=== PATIENT | female | born 1970 | race African-American/Black ===

== ENCOUNTER 2023-09-20 07:17 | Outpatient (CLI) | payer OTHER, SELFPAY ==
[2023-09-20 08:14] LABS: Hemoglobin 10.4 g/dL (12.0-15.0); Mean Corpuscular HGB Conc 30.6 g/dl (32-36); Mean Corpuscular Hemoglobin 27.7 pg (26-34); Mean Corpuscular Volume 90.7 fl (80-100); Mean Platelet Volume 9.7 fl (7.4-10.4); Platelet Count Result 350 k/mm3 (150-375); Red Blood Count 3.75 M/mm3 (4.2-5.4); Red Cell Distribution Width 13.2 % (11.5-14.5); White Blood Count 8.5 K/mm3 (4.5-10.0)
[2023-09-20 08:23] LABS: Albumin Level 3.7 g/dL (3.5-5.1); Anion Gap 8 mmol/L (8-16); Blood Urea Nitrogen 28 mg/dL (7-17); Calcium 8.8 mg/dL (8.4-10.2); Carbon Dioxide 23 mmol/L (22-30); Chloride 108 mmol/L (98-107); Estimated Glomerular Filt Rate 23; Glucose 83 mg/dL (65-110); Phosphorus 3.6 mg/dL (2.5-4.5); Sodium 139 mmol/L (137-145)
[2023-09-20 08:35] LABS: Parathyroid Intact 276.9 pg/mL (7.5-53.5)
[2023-09-20 08:39] LABS: Iron 74 ug/dL (37-170)
[2023-09-20 08:48] LABS: Percent Iron Saturation 28 % (20-50); Vitamin D 25 Hydroxy 15.7 ng/mL
[2023-09-20 09:08] LABS: Total Protein Urine Random 270 mg/dL; Ur Ttl Prot Creatinine Ratio 3.03 mg/mg (0-0.20)
== END 2023-09-20 07:18 | disposition home or self-care (01) ==
LOC: ANHLAB 07:20
PROVIDERS: PCP Family Medicine; Visit Provider Internal Medicine Nephrology
DX: N18.4 Chronic kidney disease, stage 4 (severe) (principal); E55.9 Vitamin D deficiency, unspecified; N25.81 Secondary hyperparathyroidism of renal origin
CPT/HCPCS: 36415; 80069; 82306; 82570; 82728; 83540; 83550; 83970; 84156; 85027

== ENCOUNTER 2023-11-08 20:58 | Emergency (ER) | payer OTHER, SELFPAY ==
[2023-11-08 20:59] VITALS: BP 151/82; PULSE 78; RESP 18; TEMP 36.3; O2SAT 100
--- NOTE | 2023-11-08 21:27 | PC.NURSE ---
after having VS taken pt decided BP was stable enough to go home. Education and f/u provided. Pt made aware to come back if needed and f/u with PCP.
== END 2023-11-08 22:43 | disposition left against medical advice (07) ==
LOC: ANHED 21:47
PROVIDERS: PCP Family Medicine
DX: I10 Essential (primary) hypertension (principal)
CPT/HCPCS: 99199

== ENCOUNTER 2023-12-06 18:06 | Emergency (ER) | payer OTHER, SELFPAY ==
--- NOTE | ~2023-12-06 | US_ITS ---
EXAMINATION: US venous doppler UE DATE: 12/06/2023 19:23 INDICATION: pain, tightness . TECHNIQUE: Grayscale ultrasound images without and with compression and Doppler ultrasound images of the left upper extremity veins were obtained. COMPARISON: None. FINDINGS: The visualized portions of the left internal jugular vein, subclavian vein, axillary vein, brachial v eins, basilic vein, and cephalic vein are patent. The left radial and ulnar veins were not evaluated. IMPRESSION: No left upper extremity deep venous thrombosis. Reviewed, dictated and finalized at location K.
--- NOTE | ~2023-12-06 | XR_ITS ---
EXAMINATION: XR chest 2V Exam Date/Time: 12/06/2023 18:45 CDT HISTORY: SOB Comparison: 11/22/2018. RESULT: Lines, tubes, and devices: None. Lungs and pleura: Clear. Cardiomediastinal silhouette: Stable. Other: No acute osseous or upper abdominal finding. IMPRESSION: No acute cardiopulmonary process. Reviewed, dictated and finalized at location K.
[2023-12-06 18:16] VITALS: BP 150/103; PULSE 92; RESP 18; TEMP 36.8; O2SAT 100
--- NOTE | 2023-12-06 18:18 | ECG_ITS ---
Measurements Intervals [place] Rate: 88 P: 48 FL: 168 QRS: -23 QRSD: 87 T: 41 QT: 346 QTc: 419 Interpretive Statements SINUS RHYTHM POSSIBLE LEFT ATRIAL ENLARGEMENT LOW QRS VOLTAGE IN PRECORDIAL LEADS CANNOT RULE OUT SEPTAL INFARCT, AGE INDETERMINATE ABNORMAL ECG COMPARED TO ECG 11/22/2018 01:47:13 NO SIGNIFICANT CHANGES Electronically Signed On 12-06-2023 18:59:52 CDT by Jose Chavez D.O.
--- NOTE | 2023-12-06 18:19 | ED.EXTPRO ---
HPI - Extremity Problem General Chief complaint: Extremity Problem,Nontraumatic <Yaz Turcios PA-C - Last Filed: 12/08/23 12:56> Stated complaint: tightness left arm <Yaz Turcios PA-C - Last Filed: 12/08/23 12:56> Time Seen by Provider: 12/06/23 18:19 <Yaz Turcios PA-C - Last Filed: 12/08/23 12:56> Focused HPI: This is a 53 year old female that presents to the ER for tightness in her left arm. Ongoing over the last 2 days. She was concerned she was having a heart attack which prompted her to be seen. Reports she has been out of her blood pressure medication recently. Report some shortness of breath. Denies chest pain. GENERAL: Well-appearing, well-nourished, and in no acute distress. HEAD: Normocephalic, atraumatic. CHEST: Clear to auscultation. ?No respiratory distress. HEART: Regular rate and rhythm.? NEURO: ?Alert and oriented x3. Patient screened in triage and initial orders placed.? ?Additional care and disposition to be based upon?diagnostic testing and treatment. <Yaz Turcios PA-C - Last Filed: 12/08/23 12:56> History of Present Illness HPI Narrative: 53-year-old female present to the ED for evaluation of tightness to her left arm. <Mariano Manley MD - Last Filed: 12/13/23 08:16> Related Data Home medications: Home Medications Medication Instructions Recorded Confirmed benzonatate 100 mg capsule 100 mg PO TID 08/26/23 09/23/23 escitalopram oxalate 10 mg tablet 10 mg PO DAILY 08/26/23 09/23/23 (Lexapro) famotidine 20 mg tablet 20 mg PO DAILY 08/26/23 09/23/23 lorazepam 0.5 mg tablet 0.5 mg PO DAILY PRN 08/26/23 09/23/23 <STEPHEN Kenney Last Filed: 12/08/23 12:56> Allergies/Adverse reactions: Allergies Allergy/AdvReac Type Severity Reaction Status Date / Time ibuprofen Allergy Other Verified 12/06/23 19:27 <STEPHEN Kenney Filed: 12/08/23 12:56> Review of Systems Review of Systems: All systems reviewed & are unremarkable except as noted in HPI and below <Yaz Turcios PA-C - Last Filed: 12/08/23 12:56> PMFSH Past Medical History Medical History: Medical History (Updated 12/09/23 @ 00:00 by Background Dajay) Anxiety CKD (chronic kidney disease) Glomerulosclerosis Hypertension Proteinuria <Yaz Turcios PA-C - Last Filed: 12/08/23 12:56> Family History Family History: Family History (Updated 12/14/16 @ 23:56 by DOCTOR UNKNOWN) Father Hypertension Mother Hypertension Family history of elevated blood lipids Cerebrovascular accident Family history of coronary artery disease, Onset Age: 57 Family history of malignant neoplasm of breast in first degree relative Patient's mother is Family history of diabetes mellitus in first degree relative Grandparent Family history of coronary artery disease, Onset Age: 76 Diabetes mellitus Other Family history of pancreatic cancer <Yaz Turcios PA-C - Last Filed: 12/08/23 12:56> Social History Social History: Social History (Updated 09/23/23 @ 15:06 by Riri Walker MA) Smoking status: Never smoker Alcohol intake: current Substance use: never Do You Feel Safe in your Home?: Yes Lack of Transportation: No Lack of Food: Never True Current Housing: I Have Housing Concerned About Future Housing: No Difficulty Paying Gas/Electric Bills: No Difficulty Paying for Meds: No Currently Unemployed: No Education: Bachelor's Degree Difficulty w/ Childcare or Family Care: No Occupation/Education: occupation Gender identity (if verbalized by the patient): Female <Yaz Turcios PA-C - Last Filed: 12/08/23 12:56> Exam Narrative: GENERAL: Well-appearing, well-nourished, and in no acute distress. HEAD: Normocephalic, atraumatic. EYES: EOMI. CHEST: Clear to auscultation. No respiratory distress. No wheezes rales or rhonchi HEART: Regular rate and rhythm. No murmur heard. Normal peripheral
[2023-12-06 18:36] LABS: Basophils Absolute Auto 0.1 K/mm3 (0.0-0.1); Eosinophils Absolute Auto 0.4 K/mm3 (0-0.3); Eosinophils Percent Auto 4.9 % (0-4.4); Hematocrit 34.1 % (37.0-47.0); Hemoglobin 10.6 g/dL (12.0-15.0); Immature Granulocyte Absolute 0.03 K/mm3 (0.00-0.031); Immature Granulocyte Percent A 0.3 % (0-0.5); Mean Corpuscular HGB Conc 31.1 g/dl (32-36); Mean Corpuscular Hemoglobin 28.2 pg (26-34); Mean Corpuscular Volume 90.7 fl (80-100); Mean Platelet Volume 9.9 fl (7.4-10.4); Monocytes Absolute Auto 0.8 K/mm3 (0.1-0.6); Monocytes Percent Auto 8.7 % (2.6-8.5); Neutrophils Percent Auto 56.1 % (45.5-73.1); Platelet Count Result 312 k/mm3 (150-375); Red Blood Count 3.76 M/mm3 (4.2-5.4)
[2023-12-06 18:43] LABS: Partial Thromboplastin Time 29.3 Seconds (22.3-36.8); Prothrombin Time 13.1 Seconds (11.1-14.7)
[2023-12-06 18:45] LABS: Alanine Aminotransferase 16 U/L (6-35); Alkaline Phosphatase 80 U/L (38-126); Anion Gap 4 mmol/L (4-12); Aspartate Amino Transferase 22 U/L (14-36); Bilirubin,Total 0.4 mg/dL (0.2-1.3); Blood Urea Nitrogen 25 mg/dL (7-17); Calcium 9.3 mg/dL (8.4-10.2); Carbon Dioxide 26 mmol/L (22-30); Chloride 109 mmol/L (98-107); Estimated CRCL calculation 26 ml/min; Estimated Glomerular Filt Rate 19; Glucose 76 mg/dL (65-110); Potassium 3.7 mmol/L (3.4-5.0); Sodium 139 mmol/L (137-145)
[2023-12-06 18:57] LABS: Troponin I < 0.012 ng/mL (0.000-0.034)
[2023-12-06 19:27] VITALS: BP 146/89; PULSE 81; RESP 17; O2SAT 100
== END 2023-12-06 20:10 | disposition home or self-care (01) ==
PROVIDERS: Physician Assistant; Emergency Provider Emergency Medicine; PCP Family Medicine
DX: N17.9 Acute kidney failure, unspecified (principal); I12.9 Hypertensive chronic kidney disease with stage 1 through stage 4 chronic kidney disease, or unspecified chronic kidney disease; N18.9 Chronic kidney disease, unspecified; M79.602 Pain in left arm; T46.5X6A Underdosing of other antihypertensive drugs, initial encounter; F41.9 Anxiety disorder, unspecified
CPT/HCPCS: 36415; 71046; 80053; 84484; 85025; 85610; 85730; 93005; 93971; 99284

== ENCOUNTER 2024-01-03 12:21 | Observation (INO) | payer OTHER, SELFPAY ==
--- NOTE | ~2024-01-03 | US_ITS ---
EXAMINATION: US carotid duplex BI DATE: 01/04/2024 12:15 INDICATION: Neurologic symptoms TECHNIQUE: Grayscale, color Doppler, and pulsed Doppler images of the cervical carotid arteries were obtained. The degree of vessel stenosis is placed in one of the following categories: normal, <50%, 5 0-69%, >=70% but less than near-occlusion, near-occlusion, or total occlusion. Note that percent sten osis relative to normal distal artery lumen diameter is indirectly measured from velocity measurement s as described by Kei, et al. Radiology 2003; 229:340-346. COMPARISON: None. FINDINGS: RIGHT: The right common carotid artery (CCA) peak systolic velocity (PSV) is 82.9 cm/s. The right internal c arotid artery (ICA) PSV is 93.9 cm/s. The right ICA end-diastolic velocity (EDV) is 33.0 cm/s. The ri ght ICA/CCA PSV ratio is 1.1. Grayscale and color Doppler images yield an estimate of less than 50% d iameter reduction from plaque in the ICA. The external carotid artery (ECA) PSV is 66.4 cm/s. There i s antegrade flow in the right vertebral artery. LEFT: The left CCA PSV is 78.7 cm/s. The left ICA PSV is 92.9 cm/s. The left ICA EDV is 33.4 cm/s. The left ICA/CCA PSV ratio is 1.2. Grayscale and color Doppler images yield an estimate of less than 50% diam eter reduction from plaque in the ICA. The ECA PSV is 51.5 cm/s. There is antegrade flow in the left vertebral artery. IMPRESSION: 1. Less than 50% stenosis in the right internal carotid artery. 2. Less than 50% stenosis in the left internal carotid artery. Reviewed, dictated and finalized at Location A. Reviewed, dictated and finalized at location A.
--- NOTE | ~2024-01-03 | MR_ITS ---
EXAMINATION: MR brain/brain stem wo/w con DATE: 01/04/2024 14:53 INDICATION: confusion TECHNIQUE: Magnetic resonance imaging (MRI) of the brain and brainstem was performed with 20 mL Multi Stefan intravenous contrast. Sequences included sagittal and axial T1-weighted SE, axial diffusion-krystle ghted FS EPI ASSET, axial T2*-weighted GRE, axial T2-weighted FLAIR Propeller, and axial T2-weighted Propeller. Postcontrast axial and coronal T1-weighted SE was obtained. Apparent diffusion coefficient (ADC) maps were created. COMPARISON: CT brain 01/03/2024 FINDINGS: No abnormal restricted diffusion to suggest acute ischemic infarct. No MRI evidence of hemorrhage or extra-axial collection. No suspicious foci of susceptibility to suggest prior intraparenchymal hemorr margarita. Normal white matter signal. Partially empty sella. No evidence of advanced or lobar predominant parenchymal volume loss. The basilar cisterns are patent. Flow voids are preserved. Paranasal sinuse s are within normal limits. Globes and orbital contents are within normal limits. IMPRESSION: No acute intracranial process. Reviewed, dictated and finalized at location K.
--- NOTE | ~2024-01-03 | CT_ITS ---
EXAMINATION: CT brain wo con DATE: 01/03/2024 14:03 INDICATION: Neurological deficit TECHNIQUE: Computed tomography (CT) of the head was performed without intravenous contrast. The dose- length product was 529.67 mGy-cm. Automated exposure control and iterative reconstruction technique w ere employed. COMPARISON: None FINDINGS: Normal brain parenchymal volume. No acute intracranial hemorrhage, infarction, mass or mass effect. No ventriculomegaly or midline shift. Basilar cisterns are patent.No depressed skull fractur es. Paranasal sinuses and mastoids are pneumatized. IMPRESSION: 1. No acute intracranial abnormality. Reviewed, dictated and finalized at location B.
[2024-01-03 12:27] VITALS: BP 194/111; PULSE 69; RESP 12; TEMP 36.6; O2SAT 100
[2024-01-03 12:33] VITALS: PULSE 85
--- NOTE | 2024-01-03 12:52 | ED.AMS ---
HPI - Altered Mental Status General Chief Complaint: Altered Mental Status Stated Complaint: CONFUSION, LAST KNOWN WELL YESTERDAY Time Seen by Provider: 01/03/24 12:50 History of Present Illness HPI narrative: Patient is a 53 year old female with history of HTN, CKD here with acute confusion. Patient's son last saw her in person last night behaving her normal self. This morning around 9 am she had a full oriented conversation with patient's sister who is at bedside and was able to drive over to the sister's home. She was coming to her sister's home for a virtual job interview. Around 11:30 AM she called said sister and asked strange questions stating things like I think I am at your house? She arrived at home, checked her blood pressure which was in the 150's systolic and they waited for additional family members to bring her into the ER. Patient has repetitive questioning during exam, asking repeatedly if she is moving to [place] (which is where the job she is interviewing for is located). She is oriented to most past events prior to today and the names of her family members, coworkers but has poor recollection of current scenarios and the present date. She denies any pain, headache, trauma. She denies drug or alcohol use. She denies any numbness, weakness or difficulty talking. Family notes she has been walking without difficulty. No chest pain, fever, chills. Family notes she is under a significant amount of stress lately including caring for her 2 children who have some disabilities, a pending upcoming move, coordinating a new job. Related Data Home Medications Medication Instructions Recorded Confirmed escitalopram oxalate 10 mg tablet 10 mg PO DAILY 08/26/23 01/03/24 (Lexapro) famotidine 20 mg tablet 20 mg PO DAILY 08/26/23 01/03/24 losartan 50 mg tablet 50 mg PO DAILY 01/03/24 01/03/24 Allergies Allergy/AdvReac Type Severity Reaction Status Date / Time ibuprofen Allergy Other Verified 12/06/23 19:27 Review of Systems Review of Systems: All systems reviewed & are unremarkable except as noted in HPI and below PMFSH Past Medical History Medical History Anxiety CKD (chronic kidney disease) Glomerulosclerosis Hypertension Proteinuria Family History Family History (Updated 01/03/24 @ 16:49 by Judy Guadalupe RN) Father Hypertension Mother Family history of elevated blood lipids Family history of diabetes mellitus in first degree relative Patient's mother is Family history of malignant neoplasm of breast in first degree relative Family history of coronary artery disease, Onset Age: 57 Hypertension Cerebrovascular accident Grandparent Diabetes mellitus Family history of coronary artery disease, Onset Age: 76 Cerebrovascular accident Sibling Cerebrovascular accident Other Family history of pancreatic cancer Social History Social History Smoking status: Never smoker Alcohol intake: never Substance use: never Do You Feel Safe in your Home?: Yes Lack of Transportation: No Lack of Food: Never True Current Housing: I Have Housing Concerned About Future Housing: No Difficulty Paying Gas/Electric Bills: No Difficulty Paying for Meds: No Currently Unemployed: No Education: Bachelor's Degree Difficulty w/ Childcare or Family Care: No Occupation/Education: occupation Gender identity (if verbalized by the patient): Female Spiritual care concerns: No Exam Narrative: GENERAL: Well-appearing, well-nourished, and in no acute distress. HEAD: Normocephalic, atraumatic. EYES: PERRLA and EOMI. ENT: Nares clear. Mucous membranes moist. NECK: Supple. CHEST: Clear to auscultation. No respiratory distress. HEART: Regular rate and rhythm. Normal peripheral pulses. ABDOMEN: Soft, nontender, nondistended. EXTREMITIES: Normal range of motion. No edema. SKIN
--- NOTE | 2024-01-03 12:54 | ECG_ITS ---
SEE SCANNED COPY FOR CONFIRMED REPORT MTDD
[2024-01-03 13:09] LABS: Basophils Absolute Auto 0.1 K/mm3 (0.0-0.1); Basophils Percent Auto 0.9 % (0.2-1.2); Eosinophils Absolute Auto 0.4 K/mm3 (0-0.3); Eosinophils Percent Auto 4.1 % (0-4.4); Hemoglobin 11.2 g/dL (12.0-15.0); Immature Granulocyte Absolute 0.02 K/mm3 (0.00-0.031); Immature Granulocyte Percent A 0.2 % (0-0.5); Lymphocytes Absolute Auto 2.27 K/mm3 (0.9-3.2); Lymphocytes Percent Auto 24.9 % (18.3-44.2); Mean Corpuscular HGB Conc 31.1 g/dl (32-36); Mean Corpuscular Hemoglobin 28.1 pg (26-34); Mean Corpuscular Volume 90.5 fl (80-100); Mean Platelet Volume 9.7 fl (7.4-10.4); Monocytes Absolute Auto 0.6 K/mm3 (0.1-0.6); Monocytes Percent Auto 6.4 % (2.6-8.5); Neutrophils Absolute Auto 5.8 K/mm3 (1.3-6.7); Neutrophils Percent Auto 63.5 % (45.5-73.1); Platelet Count Result 338 k/mm3 (150-375); Red Blood Count 3.98 M/mm3 (4.2-5.4); Red Cell Distribution Width 13.5 % (11.5-14.5); White Blood Count 9.1 K/mm3 (4.5-10.0)
[2024-01-03 13:14] LABS: Appearance Urine Clear (Clear); Bacteria Urine None Seen /hpf; Bilirubin Urine Negative (Negative); Blood Urine 2+ (Negative); Color Urine Yellow (Yellow); Glucose Urine UA Negative (Negative); Ketones Urine Negative (Negative); Leukocyte Esterase Ur Negative LEU/UL (Negative); Nitrate Urine Negative (Negative); Non Pathogenic Casts 0-2; Protein Urine 3+ mg/dL (Negative); RBC Urine 51-100 /hpf (0-2); Squamous Epithelial Cell Urine None Seen /hpf (Few); Urobilinogen Urine 0.2 mg/dL (<2.0); WBC Urine 0-5 /hpf (0-3); pH Urine 6.5 (5.0-9.0)
[2024-01-03 13:19] LABS: Alanine Aminotransferase 16 U/L (6-35); Albumin Level 4.5 g/dL (3.5-5.1); Alkaline Phosphatase 76 U/L (38-126); Anion Gap 7 mmol/L (4-12); Aspartate Amino Transferase 26 U/L (14-36); Bilirubin,Total 0.6 mg/dL (0.2-1.3); Blood Urea Nitrogen 31 mg/dL (7-17); Calcium 9.6 mg/dL (8.4-10.2); Carbon Dioxide 24 mmol/L (22-30); Chloride 110 mmol/L (98-107); Estimated CRCL calculation 28 ml/min; Estimated Glomerular Filt Rate 20; Glucose 90 mg/dL (65-110); Potassium 4.5 mmol/L (3.4-5.0); Sodium 141 mmol/L (137-145)
[2024-01-03 13:26] LABS: INR 0.9; Partial Thromboplastin Time 29.5 Seconds (22.3-36.8); Prothrombin Time 12.7 Seconds (11.1-14.7)
[2024-01-03 13:43] LABS: Add Urine Microscopic? YES
[2024-01-03 13:46] LABS: Ethanol < 10 mg/dL (<10)
[2024-01-03 14:02] LABS: Barbiturate Screen Urine Negative (Negative); Benzodiazepines Screen Urine Negative (Negative)
[2024-01-03 14:06] LABS: Amphetamine Screen Urine Negative (Negative); Cannabinoid Screen Urine Negative (Negative); Cocaine Screen Urine Negative (Negative); Methadone Screen Urine Negative (Negative); Opiate Screen Urine Negative (Negative); Phencyclidine Screen Urine Negative (Negative)
[2024-01-03 14:39] VITALS: BP 163/90; PULSE 79; RESP 14; O2SAT 100
[2024-01-03 15:01] VITALS: BP 137/99; PULSE 74; RESP 17; O2SAT 100
[2024-01-03 15:02] LABS: Prothrombin Time 13.2 Seconds (11.1-14.7)
[2024-01-03 15:04] LABS: Partial Thromboplastin Time 29.6 Seconds (22.3-36.8)
[2024-01-03 15:09] LABS: Troponin I < 0.012 ng/mL (0.000-0.034)
--- NOTE | 2024-01-03 15:57 | PM.IMHP ---
H&P: HPI History of Present Illness Date/Time: 01/03/24 16:00 Chief Complaint: Confusion. Narrative: This is a pleasant 53-year-old female with hypertension, chronic kidney disease stage 4, and anemia who presented to the emergency department via private vehicle accompanied by her family members for evaluation of confusion. The patient provides the following history and her sisters in law provide additional information with the patient's permission. She and her children are moving to [place] this summer to be closer to her eldest son and she had a zoom interview scheduled for later this morning for a job. The interview was scheduled for 11:00 and approximately 45 minutes thereafter she phoned her sister in a confused state. She kept repeating similar sentences such as ?I think I am at your house?? Family members rushed to the home and brought her in for evaluation. She continues to be confused as to what transpired this morning however she is oriented to most past events prior to today including autobiographical information. She remembers going to bed last night and knows she was supposed to have her interview today but she does not remember getting dressed, going to her sister's house, or the interview itself. She has never experienced similar symptoms. She admits to having a lot of stress recently. She denies vertigo, headache, visual changes, facial droop, difficulty speaking and swallowing, focal weakness, and paresthesias. No palpitations, sensations of racing heart, or known history of atrial fibrillation. She denies alcohol and illicit substance use. In the ED: Her blood pressure was 194/111 on arrival but has improved significantly without intervention. The remainder of her vital signs are stable. CMP and CBC were reviewed and they are stable compared to previous labs. Urine drug screen was negative. Brain CT showed no intracranial abnormality. She is being admitted in this setting for further workup. Review of Systems Review of Systems: 12 systems were reviewed and are negative except for as per HPI. [facility] Past Medical History Medical History (Updated 01/03/24 @ 21:36 by Vicky Brooks PA-C) Anxiety Chronic anemia Chronic kidney disease, stage 4 (severe) Glomerulosclerosis Hypertension Family History Family History Father Hypertension Mother Family history of elevated blood lipids Family history of diabetes mellitus in first degree relative Patient's mother is Family history of malignant neoplasm of breast in first degree relative Family history of coronary artery disease, Onset Age: 57 Hypertension Cerebrovascular accident Grandparent Diabetes mellitus Family history of coronary artery disease, Onset Age: 76 Cerebrovascular accident Sibling Cerebrovascular accident Other Family history of pancreatic cancer Social History Social History (Updated 01/03/24 @ 21:35 by Vicky Brooks PA-C) Social History: Surrogate medical decision maker: Raina Figueroa, friend. Code status: Full code. Smoking status: Never smoker Alcohol intake: never Substance use: never Do You Feel Safe in your Home?: Yes Lack of Transportation: No Lack of Food: Never True Current Housing: I Have Housing Concerned About Future Housing: No Difficulty Paying Gas/Electric Bills: No Difficulty Paying for Meds: No Currently Unemployed: No Education: Bachelor's Degree Difficulty w/ Childcare or Family Care: No Additional living arrangements comments: Lives in [place]. She has 3 children. 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 Spiritual care concerns: No Meds Home Medications and Allergies Home Medications Medication Instructions Recorded Confirmed Type escitalopram oxalate 10 mg tablet 10 mg PO DAILY 08/26/23 01/03/24 History (Lexapro) famotidine
--- NOTE | 2024-01-03 16:25 | ADMGEN ---
This patient, Andrés Carnes, was admitted to [facility] Surg Room 332-01. Patient/family oriented to hospital policies and general routines including ID bracelet, bed and alarms, visiting hours, pain management, procedures, bathroom and other care routines, personal items, smoking policy, room service/diet, and visiting hours. Information on how to activate the Rapid Response Team has been discussed. Patient/Family are encouraged to report perceived risks to care and to ask questions if they do not understand what they are told or what they should do.
[2024-01-03 16:56] VITALS: BMI 41.4
[2024-01-03 20:00] VITALS: BP 147/87; PULSE 74; PULSE 76; RESP 16; TEMP 36.2; O2SAT 100
[2024-01-04] VITALS (7 sets, daily range): BP systolic 124–150; BP diastolic 65–109; PULSE 57–83; RESP 16–20; TEMP 35.7–36.4; O2SAT 97–100
[2024-01-04] MEDS: ACETAMINOPHEN 325 MG TABLET 650 MG PO ×2 (00:25→09:35)
[2024-01-04 06:31] LABS: Hematocrit 34.8 % (37.0-47.0); Hemoglobin 10.9 g/dL (12.0-15.0); Mean Corpuscular HGB Conc 31.3 g/dl (32-36); Mean Corpuscular Volume 89.5 fl (80-100); Mean Platelet Volume 9.4 fl (7.4-10.4); Platelet Count Result 331 k/mm3 (150-375); Red Blood Count 3.89 M/mm3 (4.2-5.4); Red Cell Distribution Width 13.4 % (11.5-14.5)
[2024-01-04 06:41] LABS: Anion Gap 8 mmol/L (4-12); Blood Urea Nitrogen 26 mg/dL (7-17); Calcium 9.6 mg/dL (8.4-10.2); Carbon Dioxide 21 mmol/L (22-30); Chloride 109 mmol/L (98-107); Estimated CRCL calculation 27 ml/min; Estimated Glomerular Filt Rate 20; Glucose 97 mg/dL (65-110); Potassium 4.2 mmol/L (3.4-5.0); Sodium 138 mmol/L (137-145)
[2024-01-04 07:46] LABS: Folic Acid 7.7 ng/mL (2.76->20)
[2024-01-04] MEDS: FAMOTIDINE 20 MG TABLET PO (09:36)
[2024-01-04] MEDS: LOSARTAN POTASSIUM 50 MG TABLET PO (09:36)
[2024-01-04] MEDS: ESCITALOPRAM OXALATE 10 MG TABLET PO (09:36)
--- NOTE | 2024-01-04 16:02 | WPDNEURCNPN ---
Assessment and Plan Assessment and plan (1) Transient global amnesia: Code(s): G45.4 - Transient global amnesia Status: Acute Assessment and Plan: Differential diagnosis of her condition and the possibility of cerebrovascular disease go up partial complex seizure, suggests dissociated states. Of the noted to be high at 194/111 the gradually improved. (2) Chronic kidney disease, stage IV (severe): Code(s): N18.4 - Chronic kidney disease, stage 4 (severe) Status: Acute (3) Hypertension: Code(s): I10 - Essential (primary) hypertension Status: Acute (4) Chronic kidney disease, stage 4 (severe): Code(s): N18.4 - Chronic kidney disease, stage 4 (severe) Status: Acute (5) Chronic anemia: Code(s): D64.9 - Anemia, unspecified Status: Acute Plan However suggest to treat with Plavix and atorvastatin for at least 3 weeks. A EEG and a carotid Doppler study should be done. Post to report to emergency room at once if he has any for the leg symptoms is recommended. Patient does kidney disease anemia and 4 with hydrology technician regularly. These findings were discussed with the hospital stating and the nursing staff. Consult date: 01/04/24 Time Seen: 16:05 HPI: Andrés Carnes is a 53 year old Afro-[place] female with history of sudden onset of change in mental status around 10-11 o'clock yesterday morning. 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 She got there and there was some problem with the zoom call. During that time suddenly there was some change in mental status since he does not recall what happened. Next thing she was taken to the hospital via ambulance around mid day and she does not recall anything until around 4:26 p.m. at these times he found a nurse practitioner talking to her. She has not had any spells such as this before. In the emergency room she was repeatedly saying something again again. Patient does not have any recall of anything that happened several hours. There is no history of febrile illness or head trauma or any other medical problems other than the fact that she is known to chronic kidney disease stage 4 and anemia the on arrival the emergency room for further 194/111. After she gained mental status back to normal since he had headache his symptoms week severe paresis of the some for his significant with. Patient single lives with 2 children eating and 24. Eight[age] year is also autistic mother stroke at age 57. Patient developed to kidney failure but was found around 1999 to this condition patient dialysis. Review of Systems Constitutional: Constitutional: Denies chills, Denies fever(s) and Denies weight loss Eyes: Eyes: Denies diplopia and Denies loss of vision ENT: Denies dizziness, Denies hearing loss and Denies tinnitus Cardiovascular: Cardiovascular: Denies chest pain, Denies syncope and Denies dyspnea Respiratory: Respiratory: Denies cough, Denies dyspnea and Denies wheezing Gastrointestinal: Gastrointestinal: Denies abdominal pain, Denies change in bowel habits and Denies vomiting Genitourinary: Genitourinary: Denies urinary incontinence Musculoskeletal: Musculoskeletal: Denies arthralgias and Denies joint swelling Integumentary/Breasts: Skin/Breast: Denies new lesions and Denies rash Neurologic: Reports as per HPI, Denies dizziness, Denies syncope and Denies loss of vision Psychiatric: Psychiatric: Denies anxiety and Denies depression Endocrine: Endocrine: Denies cold intolerance and Denies heat intolerance Hematologic/Lymphatic: Hematologic/Lymphatic: Denies easy bleeding and Denies easy bruising Allergic/Immunologic: Allergic/Immunologic: Denies no additional allergic/immunologic complaints and Denies wheezing [facility] Past Medical History Medical History (Updated 01/04/24 @ 16:08 by Edgardo Padron MD) Anxiety Chronic
--- NOTE | 2024-01-04 17:13 | PM.DS ---
DS: Admitting Diagnosis Discharge Date 01/04/24 Admitting Diagnosis Amnesia DS: Discharge Diagnosis Discharge Diagnosis (1) Transient global amnesia: Code(s): G45.4 - Transient global amnesia Status: Acute (2) Chronic kidney disease, stage 4 (severe): Code(s): N18.4 - Chronic kidney disease, stage 4 (severe) Status: Acute (3) Hypertension: Code(s): I10 - Essential (primary) hypertension Status: Acute (4) Chronic anemia: Code(s): D64.9 - Anemia, unspecified Status: Acute (5) Anxiety: Code(s): F41.9 - Anxiety disorder, unspecified Status: Acute DS: Summary Hospital Course Reason for hospitalization: 53yo female with CKD, HTN, anemia and anxiety here for confusion and amnesia. Please see H&P for details Hospital Course: The patient presented to the emergency department for evaluation of confusion. Blood pressure was 194/111. WBC and platelet count normal but Hgb 10-11 range. CMP normal except for cr 3.0 which is within her baseline. PT/PTT normal. Troponin negative. B12/folate/TSH normal. UA showing 3+ protein but she has known nephrotic syndrome. She had 2+ blood and 51-100 RBC but it was a cathed specimen. UDS negative. Alcohol<10. Head CT showing no acute intracranial abnormalities. EKG showing low voltage with poor R wave progression. She was resumed on her home anti-HTN medications and her blood pressure responded well. Brain MRI showing no acute intracranial process. Neurology consulted and did not feel a MRA brain was needed. Carotid ultrasound pending. Neurology recommended outpatient EEG and to start Plavix and Lipitor. Echo unable to be performed today (and not available tomorrow) so will order as outpatient. She had clinical improvement and was able to be discharged home on 01/04/24. Status at Discharge Cognitive/behavioral status at discharge: stable Time Spent with Patient Time attestation: Total time spent providing and/or coordinating discharge services: 35 minutes Time spent: Greater than 30 minutes Specific discharge activities: discussed with neurology Exam Narrative: AF 97.6 124/75 83 20 100% ra Gen - NARD Chest - CTA bilaterally, nml RR CV - RRR S1/S2. Tele showing no significant dysrhythmias Abd - Soft, NT/ND, Positive BS Ext - No pedal edema Neuro - Alert and oriented. Nonfocal exam. Psych - Nml mood and affect Skin - Warm and dry DS: Data Data Completed and Pending Labs on day of discharge: Labs from last 24 hours 01/04/24 01/04/24 16:38 06:11 WBC 9.0 RBC 3.89 L Hgb 10.9 L Hct 34.8 L MCV 89.5 MCH 28.0 MCHC 31.3 L RDW 13.4 Plt Count 331 MPV 9.4 Sodium 138 Potassium 4.2 Chloride 109 H Carbon Dioxide 21 L Anion Gap 8 BUN 26 H Creatinine 3.00 H Estim Creat Clear Calc 27 Estimated GFR 20 L Glucose 97 Calcium 9.6 Magnesium 2.0 Vitamin B12 552.0 Vitamin D 25-Hydroxy Pending Folate 7.7 TSH Pending TSH (Reflex) 3.490 Thyroxine (T4) Pending Free T3 pg/mL Pending Discharge Plan Discharge Attending physician on discharge: Rober Chacon Consulting providers: Jessy Shin Discharging Clinician: Rober Chacon Anticipated Discharge Date/Time: 01/04/24 17:26 Patient Disposition: Home, Self-Care Activity: as tolerated Diet: heart healthy Discharge Instructions: Check blood pressure 1 to 2 times a day. Record and bring into your doctor for review. Call your doctor if your blood pressure is greater than 180/110. Contact your doctor or call 911 and come to the Emergency Room if you have numness/tingling/weakness in your extremities or other worrisome symptoms. Avoid NSAIDs (ibuprofen, naproxen, Aleve). Tylenol is safe to take. Follow-up with your primary care provider in 1-2 weeks. Please call for appointment. Follow-up with Neurology in 1-2 weeks. Please call for an appointment. The neurologist emily
[2024-01-04 17:23] LABS: T4 Thyroxine 6.66 ug/dL (5.53-11.0); Vitamin D 25 Hydroxy 20.2 ng/mL
== END 2024-01-04 18:50 | disposition home or self-care (01) ==
LOC: ANHED 13:16 → ANH3MEDSUR 16:22
PROVIDERS: Physician Assistant; Psychiatry & Neurology Neurology; Admitting Provider Hospitalist; Emergency Provider Student in an Organized Health Care Education/Training Program; PCP Family Medicine; Visit Provider Internal Medicine
DX: G45.4 Transient global amnesia (principal); I12.9 Hypertensive chronic kidney disease with stage 1 through stage 4 chronic kidney disease, or unspecified chronic kidney disease; N18.4 Chronic kidney disease, stage 4 (severe); D63.1 Anemia in chronic kidney disease; F41.9 Anxiety disorder, unspecified; Z82.3 Family history of stroke; Z79.899 Other long term (current) drug therapy
CPT/HCPCS: 36415; 70450; 70553; 80048; 80053; 80307; 81001; 81025; 82306; 82607; 82746; 83735; 84436; 84443; 84480; 84484; 85025; 85027; 85610; 85730; 93005; 93880; 99285; A9270; A9577; G0378

== ENCOUNTER 2024-03-14 05:31 | Emergency (ER) | payer OTHER, SELFPAY ==
--- NOTE | ~2024-03-14 | XR_ITS ---
EXAMINATION: XR chest 2V DATE: 03/14/2024 06:31 INDICATION: Chest pain. TECHNIQUE: Frontal and lateral views of the chest were obtained. COMPARISON: Chest 2 views 12/06/2023 FINDINGS: There is no pneumonia, pleural effusion, or pneumothorax. The heart size is normal. IMPRESSION: 1. No acute cardiopulmonary disease. Reviewed, dictated and finalized at location A.
[2024-03-14 05:34] VITALS: BP 157/105; PULSE 85; RESP 20; TEMP 37; O2SAT 100
--- NOTE | 2024-03-14 05:51 | ECG_ITS ---
Test Date: 2024-03-14 05:56:17 Measurements Intervals [place] Rate: 66 P: 34 [place]: 188 QRS: -17 QRSD: 98 T: 7 QT: 393 QTc: 412 Interpretive Statements SINUS RHYTHM LOW QRS VOLTAGE IN PRECORDIAL LEADS PATTERN CONSISTENT WITH PULMONARY DISEASE CANNOT R/O SEPTAL INFARCT, AGE INDETERMINATE BASELINE ARTIFACT- I, II, III, AVR ABNORMAL ECG No previous ECG available for comparison Electronically Signed On 03-14-2024 07:44:14 CDT by Jose Chavez D.O.
[2024-03-14 06:04] LABS: Basophils Absolute Auto 0.1 K/mm3 (0.0-0.1); Basophils Percent Auto 0.9 % (0.2-1.2); Eosinophils Absolute Auto 0.5 K/mm3 (0-0.3); Eosinophils Percent Auto 5.5 % (0-4.4); Hematocrit 31.6 % (37.0-47.0); Hemoglobin 10.1 g/dL (12.0-15.0); Immature Granulocyte Absolute 0.03 K/mm3 (0.00-0.031); Immature Granulocyte Percent A 0.3 % (0-0.5); Lymphocytes Absolute Auto 3.14 K/mm3 (0.9-3.2); Lymphocytes Percent Auto 32.1 % (18.3-44.2); Mean Corpuscular Hemoglobin 28.4 pg (26-34); Mean Corpuscular Volume 88.8 fl (80-100); Mean Platelet Volume 9.4 fl (7.4-10.4); Monocytes Absolute Auto 0.7 K/mm3 (0.1-0.6); Monocytes Percent Auto 7.3 % (2.6-8.5); Neutrophils Absolute Auto 5.3 K/mm3 (1.3-6.7); Neutrophils Percent Auto 53.9 % (45.5-73.1); Platelet Count Result 334 k/mm3 (150-375); Red Blood Count 3.56 M/mm3 (4.2-5.4); Red Cell Distribution Width 13.3 % (11.5-14.5); White Blood Count 9.8 K/mm3 (4.5-10.0)
[2024-03-14 06:19] LABS: INR 0.9; Prothrombin Time 12.8 Seconds (11.1-14.7)
[2024-03-14 06:20] LABS: Partial Thromboplastin Time 29.4 Seconds (22.3-36.8)
[2024-03-14 06:21] LABS: Alanine Aminotransferase 13 U/L (6-35); Alkaline Phosphatase 100 U/L (38-126); Anion Gap 11 mmol/L (4-12); Aspartate Amino Transferase 21 U/L (14-36); Bilirubin,Total 0.4 mg/dL (0.2-1.3); Blood Urea Nitrogen 36 mg/dL (7-17); Carbon Dioxide 23 mmol/L (22-30); Chloride 106 mmol/L (98-107); Estimated CRCL calculation 25 ml/min; Estimated Glomerular Filt Rate 18; Glucose 100 mg/dL (65-110); Lipase 227 U/L (23-300); Potassium 3.7 mmol/L (3.4-5.0); Sodium 140 mmol/L (137-145)
[2024-03-14 06:32] LABS: Troponin I < 0.012 ng/mL (0.000-0.034)
--- NOTE | 2024-03-14 06:43 | ED.GENADULT ---
HPI - General Adult General Chief complaint: Unspecified Stated complaint: Indigestion, left arm pain Time Seen by Provider: 03/14/24 06:12 Source: patient Limitations: no limitations History of Present Illness HPI narrative: Patient is a 53-year-old female presents to the emergency department complaining of indigestion. Patient was the indigestion woke her up couple hours ago from sleep, feels like a burning sensation in the middle of her chest, has had multiple episodes of this in the past, has never seen a junior designer, sitting of 1 to the regularly. Patient notes that when she sitting upright he feels a lot better. Patient denies difficulty breathing, cough, fever, recent injuries, recent illness, nausea, vomiting, diarrhea, abdominal pain. Patient also admits to trying Pepto-Bismol. Patient admits to history of kidney disease. Related Data Home Medications Medication Instructions Recorded Confirmed escitalopram oxalate 10 mg tablet 10 mg PO DAILY 08/26/23 01/03/24 (Lexapro) famotidine 20 mg tablet 20 mg PO DAILY 08/26/23 01/03/24 losartan 50 mg tablet 50 mg PO DAILY 01/03/24 01/03/24 Allergies Allergy/AdvReac Type Severity Reaction Status Date / Time ibuprofen Allergy Other Verified 12/06/23 19:27 NSAIDS (Non-Steroidal Allergy Other Verified 03/14/24 05:38 Anti-Inflamma Review of Systems Review of Systems: A 10 system review of systems was completed on the patient and is negative except for what is stated in the HPI. Nursing and ancillary documentation was reviewed. [facility] Past Medical History Medical History (Updated 03/14/24 @ 06:50 by David Mclean DO) Anxiety Chronic anemia Chronic kidney disease, stage 4 (severe) Glomerulosclerosis Hypertension Transient global amnesia Family History Family History Father Hypertension Mother Family history of elevated blood lipids Family history of diabetes mellitus in first degree relative Patient's mother is Family history of malignant neoplasm of breast in first degree relative Family history of coronary artery disease, Onset Age: 57 Hypertension Cerebrovascular accident Grandparent Diabetes mellitus Family history of coronary artery disease, Onset Age: 76 Cerebrovascular accident Sibling Cerebrovascular accident Other Family history of pancreatic cancer Social History Social History Social History: Surrogate medical decision maker: Raina Figueroa, friend. Code status: Full code. Smoking status: Never smoker Alcohol intake: never Substance use: never Do You Feel Safe in your Home?: Yes Lack of Transportation: No Lack of Food: Never True Current Housing: I Have Housing Concerned About Future Housing: No Difficulty Paying Gas/Electric Bills: No Difficulty Paying for Meds: No Currently Unemployed: No Education: Bachelor's Degree Difficulty w/ Childcare or Family Care: No Additional living arrangements comments: Lives in [place]. She has 3 children. 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 Spiritual care concerns: No Comments At time of signature, I have reviewed and agree with nursing past medical, surgical, social and family history unless otherwise noted. Please see the nursing chart for further information. There is no relevant family history pertinent to the presenting complaint. Exam Narrative: CONST: No acute distress. Well nourished. HENMT: Head is normocephalic and atraumatic. Moist mucous membranes. No posterior oropharynx erythema. EYES: No conjunctival icterus, injection, or pallor. PERRL. NECK: No meningeal signs. RESP: Able to speak in full sentences. Normal respiratory effort. CTAB. CARDIO: Regular rate. Regular rhythm. 2+ DP and radial pulses bilaterally. GI: Nondist
[2024-03-14] MEDS: BELLADONNA ALK/PHENOB ELIX 10 ML, MAG HYDROX/ALUMINUM HYD/SIMETH 30 ML, LIDOCAINE HCL 2... PO (06:58)
[2024-03-14] MEDS: FAMOTIDINE 20 MG/2 ML VIAL IV PUSH (06:58)
[2024-03-14 07:04] VITALS: BP 154/82; PULSE 67; RESP 15; O2SAT 100
== END 2024-03-14 07:05 | disposition home or self-care (01) ==
LOC: ANHED 06:57
PROVIDERS: Emergency Provider Student in an Organized Health Care Education/Training Program; PCP Family Medicine
DX: R12 Heartburn (principal); I12.9 Hypertensive chronic kidney disease with stage 1 through stage 4 chronic kidney disease, or unspecified chronic kidney disease; N18.4 Chronic kidney disease, stage 4 (severe)
CPT/HCPCS: 36415; 71046; 80053; 83690; 84484; 85025; 85610; 85730; 93005; 96374; 99284; A9270